=== PATIENT | male | born 1985 | race American Indian/Alaskan Native ===

== ENCOUNTER 2017-09-02 06:25 | Emergency (ER) | payer OTHER ==
[2017-09-02 08:29] LABS: Bilirubin,Urine NEG (Negative); Blood,Urine NEG (Negative); Ketones,Urine NEG (Negative); Leukocyte Esterase,Urine NEG (Negative); Nitrite,Urine NEG (Negative); Protein,Urine <15 mg/dL mg/dL (Negative); Urobilinogen,Urine < 2.0 mg/dL (<2.0); WBC,Urine < 1.0 /HPF (0.0-6.0)
[2017-09-02] MEDS ORDERED: XYLOCAINE 1% MPF 5 mL INFILTRATI ONE (08:42)
[2017-09-02] MEDS ORDERED: ZITHROMAX PO ONE (08:42)
[2017-09-02] MEDS ORDERED: ROCEPHIN IM ONE (08:42)
--- NOTE | 2017-09-02 08:46 | Emergency Department Report ---
ED Male HPI - General Chief complaint: Urogenital-Male Stated complaint: STD CHECK (GF DX'D WITH STD) Time Seen by Provider: 09/02/17 07:21 Source: patient Mode of arrival: Ambulatory Limitations: No Limitations - History of Present Illness Initial comments: This is a 32-year-old male nontoxic, well nourished in appearance, no acute signs of distress presents to the ED with c/o of possible STD exposure and chronic intermittent headache 7 months. Patient denies any trauma to the head. Patient stated his fiance has been diagnosed with gonorrhea and chlamydia and patient wants to be tested and treated empirically. Patient stated that he had episodes and describes it as diffuse aching level of 4-6 red patient denies thunderclap headache. Patient stated currently in the ED does not have any headache but wants to be evaluated. Patient stated headache is worsened with lights but is relieved darkness. Patient denies any chest pain, shortness of breath, fever, chills, nausea, vomiting, stiff neck, back pain, headache, abdominal pain, numbness, tingling, blurry vision. Patient denies any penile discharge, penile lesions, polyuria, hematuria, dysuria, or penile ulcers. Patient denies any allergies or past medical history. MD Complaint: other (possible STD ) Radiation: none Severity scale (0 -10): 0 Improves with: none Worsens with: none denies other symptoms. denies: discharge, swelling, mass, rash, urinary retention, blood in urine, dysuria, fever, nausea/vomiting, incontinence - Related Data Previous Rx's Medication Instructions Recorded Last Taken Type HYDROcodone/APAP 5-325 [[place] 1 each PO Q6HR PRN #12 tablet 03/13/15 Unknown Rx 5/325] hydrOXYzine PAMOATE [Vistaril] 25 mg PO Q8H PRN #12 capsule 03/13/15 Unknown Rx Allergies Allergy/AdvReac Type Severity Reaction Status Date / Time No Known Allergies Allergy Unverified 03/13/15 13:29 ED Review of Systems ROS: Stated complaint: STD CHECK (GF DX'D WITH STD) Other details as noted in HPI Constitutional: denies: chills, fever Eyes: denies: eye pain, eye discharge, vision change ENT: denies: ear pain, throat pain Respiratory: denies: cough, shortness of breath, wheezing Cardiovascular: denies: chest pain, palpitations Endocrine: no symptoms reported Gastrointestinal: denies: abdominal pain, nausea, diarrhea Genitourinary: denies: urgency, dysuria Musculoskeletal: denies: back pain, joint swelling, arthralgia Skin: denies: rash, lesions Neurological: denies: headache, weakness, paresthesias Psychiatric: denies: anxiety, depression Hematological/Lymphatic: denies: easy bleeding, easy bruising ED Past Medical Hx - Past Medical History Previous Medical History?: No - Surgical History Past Surgical History?: No - Social History Smoking Status: Never Smoker Substance Use Type: Alcohol - Medications Home Medications: Home Medications Medication Instructions Recorded Confirmed Last Taken Type HYDROcodone/APAP 5-325 [[place] 1 each PO Q6HR PRN #12 tablet 03/13/15 Unknown Rx 5/325] hydrOXYzine PAMOATE [Vistaril] 25 mg PO Q8H PRN #12 capsule 03/13/15 Unknown Rx ED Physical Exam - General Limitations: No Limitations General appearance: alert, in no apparent distress - Head Head exam: Present: atraumatic, normocephalic - Eye Eye exam: Present: normal appearance, PERRL, EOMI Pupils: Present: normal accommodation - ENT ENT exam: Present: normal exam, normal orophraynx, mucous membranes moist, TM's normal bilaterally, normal external ear exam - Neck Neck exam: Present: normal inspection, full ROM - Respiratory Respiratory exam: Present: normal lung sounds bilaterally. Absent: respiratory distress, wheezes, rales, rhonchi, stridor - Cardiovascular Cardiovascular Exam: Present: regular rate, normal rhythm. Absent: systolic murmur, diastolic murmur, rubs, gallop - GI/Abdominal GI/Abdominal exam: Present: soft, normal bowel sounds - Rectal Rectal exam: Present: deferred - Extremities Exam Extremities exam: Present: normal inspection, full ROM, normal capillary refill. Absent: tenderness, pedal edema, joint swelling, calf tenderness - Back Exam Back exam: Present: normal inspection, full ROM. Absent: tenderness, CVA tenderness (R), CVA tenderness (L), muscle spasm, paraspinal tenderness, vertebral tenderness, rash noted - Neurological Exam Neurological exam: Present: alert, oriented X3, CN II-XII intact, normal gait, reflexes normal - Expanded Neurological Exam Expanded Patient oriented to: Present: person, place, time Cranial nerves: EOM's Intact: Normal, Gag Reflex: Normal, Tongue Deviation: Normal, Nystagmus: Normal, Facial Sensation: Normal, Facial Palsy with Forehead Movement: Normal, Facial Palsy without Forehead Movement: Normal Cerebellar function: Finger to Nose: Normal, Heel to Springer: Normal, Romberg: Normal Upper motor neuron: Jose Neglect: Normal, Pronator Drift: Normal, Babinski Sign : Normal, Sensory Extinction: Normal Sensory exam: Upper Extremity Light Touch: Normal, Upper Extremity Pin Prick: Normal, Upper Extremity Temperature: Normal, UE 2 Point Discrimination: Normal, Lower Extremity Light Touch: Normal, Lower Extremity Pin Prick: Normal, Lower Extremity Temperature: Normal, LE 2 Point Discrimination: Normal Motor strength exam: RUE: 5, LUE: 5, RLE: 5, LLE: 5 DTR: bicep (R): 2+, bicep (L): 2+, tricep (R): 2+, tricep (L): 2+, knee (R): 2+ , knee (L): 2+, ankle (R): 2+, ankle (L): 2+ Best Eye Response ([place]): (4) open spontaneously Best Motor Response ([place]): (6) obeys commands Best Verbal Response ([place]): (5) oriented [place] Total: 15 - Psychiatric Psychiatric exam: Present: normal affect, normal mood - Skin Skin exam: Present: warm, dry, intact, normal color. Absent: rash ED Course Vital Signs 09/02/17 09/02/17 06:27 07:05 Temperature 98.2 F 98.2 F Pulse Rate 102 H 94 H Respiratory 18 18 Rate Blood Pressure 146/81 146/81 O2 Sat by Pulse 98 98 Oximetry - Reevaluation(s) Reevaluation #1: 09/02/17 08:45 Patient is speaking in full sentences with no signs of distress noted. ED Medical Decision Making - Medical Decision Making This is a 32-year-old male that presents with possible STD exposure and chronic intermittent headaches. Patient denies any trauma to the head. Patient received Rocephin and azithromycin ED. UA obtained with normal exam. Pending gonorrhea and chlamydia. Patient was instructed to return in 3 days to obtain results of GC. Patient currently denies any headaches. Patient was instructed to Follow-up with a primary care doctor in 3-5 days or if symptoms worsen and continue return to emergency room as soon as possible. At time time of discharge , the patient does not seem toxic or ill in appearance. No acute signs of distress noted. Patient agrees to discharge treatment plan of care. No further questions noted by the patient. Critical care attestation.: If time is entered above; I have spent that time in minutes in the direct care of this critically ill patient, excluding procedure time. ED Disposition Clinical Impression: Possible exposure to STD Headache Qualifiers: Headache type: unspecified Headache chronicity pattern: chronic headache Intractability: not intractable Qualified Code(s): R51 - Headache Disposition: DC-01 TO HOME OR SELFCARE Is pt being admited?: No Does the pt Need Aspirin: No Condition: Stable Instructions: Safe Sex (ED), Acute Headache (ED) Additional Instructions: Follow-up with a primary care doctor in 3-5 days or if symptoms worsen and continue return to emergency room as soon as possible. Return in 3 days to obtain results of gonorrhea and chlamydia Referrals: PRIMARY MD TIERA [Primary Care Provider] - 3-5 Days ELIDA BARBOSA MD [Staff Physician] - 3-5 Days KISHORE HOPPER MD [Staff Physician] - 3-5 Days [facility] [Outside] - 3-5 Days [facility] [Outside] - 3-5 Days Forms: Work/School Release Form(ED)
[2017-09-02 08:56] VITALS: BP 135/87
== END 2017-09-02 09:33 | disposition home or self-care (01) ==
LOC: ED 06:25
DX: R51 Headache (principal); Z20.2 Contact with and (suspected) exposure to infections with a predominantly sexual mode of transmission
CPT/HCPCS: 81001; 87591; 96372; 99283; J0696

== ENCOUNTER 2020-02-06 16:21 | Emergency (ER) | payer SELFPAY ==
[2020-02-06 16:26] VITALS: BP 140/92
== END 2020-02-06 18:00 ==
LOC: ED 16:21
DX: Z11.3 Encounter for screening for infections with a predominantly sexual mode of transmission (principal); Z53.21 Procedure and treatment not carried out due to patient leaving prior to being seen by health care provider